=== PATIENT | female | born 1935 | race Caucasian/White ===

== ENCOUNTER → 2016-04-06 | Outpatient (CLI) | payer OTHER, MEDICARE | LOC: MMPC 11:11 | DX: N18.3 Chronic kidney disease, stage 3 (moderate) (principal); G47.33 Obstructive sleep apnea (adult) (pediatric); F31.70 Bipolar disorder, currently in remission, most recent episode unspecified; I48.2 Chronic atrial fibrillation; D64.9 Anemia, unspecified; N25.81 Secondary hyperparathyroidism of renal origin; E66.09 Other obesity due to excess calories; E03.9 Hypothyroidism, unspecified | CPT/HCPCS: 99213; G0463 ==

== ENCOUNTER → 2016-08-03 | Outpatient (CLI) | payer OTHER, MEDICARE ==
[2016-08-03 13:29] LABS: BLOOD UREA NITROGEN 56 mg/dL (7-22); BUN/CREATININE RATIO 32.94 (6-20); CALCIUM 10.5 mg/dL (8.7-10.7); SERUM ALBUMIN 3.4 g/dL (3.5-4.8)
[2016-08-03 14:56] LABS: BASOPHILS # (AUTO) 0.03 10*3/UL; BASOPHILS % (AUTO) 0.6 % (0-1); EOSINOPHILS % (AUTO) 2.1 % (0-8); HEMATOCRIT 30.6 % (37.0-47.0); HEMOGLOBIN 9.6 g/dL (12.0-16.0); LYMPHOCYTES # (AUTO) 0.79 10*3/uL; MEAN CORPUSCULAR HEMOGLOBIN 29.3 PG (27-31); MEAN CORPUSCULAR HGB CONC 31.4 g/dL (33-37); MEAN CORPUSCULAR VOLUME 93.3 FL (81-99); MEAN PLATELET VOLUME 10.4 FL (7.4-12.2); MONOCYTES # (AUTO) 0.36 10*3/UL (0.3-0.8); MONOCYTES % (AUTO) 7.4 % (5-15); NEUTROPHILS # (AUTO) 3.55 10*3/UL; NEUTROPHILS % (AUTO) 73.4 % (50-80); RED BLOOD COUNT 3.28 10^6/uL (4.20-5.40)
[2016-08-03 15:11] LABS: PLATELET MORPHOLOGY COMMENT NORMAL MORPHOLOGY (NORM); RBC MORPHOLOGY COMMENT NORMAL MORPHOLOGY (NORM); WBC MORPHOLOGY COMMENT NORMAL MORPHOLOGY (NORM)
[2016-08-03 15:19] LABS: HEMOGLOBIN A1C 5.93 % (4.2-6.0)
== END ==
LOC: MOB LAB 11:44
DX: E11.9 Type 2 diabetes mellitus without complications (principal); Z79.4 Long term (current) use of insulin; I12.9 Hypertensive chronic kidney disease with stage 1 through stage 4 chronic kidney disease, or unspecified chronic kidney disease; N18.3 Chronic kidney disease, stage 3 (moderate); E03.9 Hypothyroidism, unspecified; G47.33 Obstructive sleep apnea (adult) (pediatric)
CPT/HCPCS: 36415; 80053; 83036; 84443; 85025